=== PATIENT | female | born 1990 | race Two or more races ===

== ENCOUNTER 2024-09-16 21:05 | Observation (INO) | payer OTHER, MEDICAID, SELFPAY ==
[2024-09-16] VITALS (13 sets, daily range): BP systolic 104; BP diastolic 65; PULSE 86–108; RESP 15; TEMP 36.3; O2SAT 92–98; BMI 64.5
[2024-09-16 22:14] LABS: Collection Type, Urine Clean Catch
[2024-09-16 22:27] LABS: ROM Kit Lot # 57805053
[2024-09-16 22:28] LABS: ROM Swab Mixed By: RAWLT; Rupture of Fetal Membranes Negative (Negative); Swb Mxed in Solvent 1 min? Yes
[2024-09-16 22:29] LABS: Bacteria,Urine Rare; Bilirubin,Urine 1+ (Negative); Blood,Urine Negative (Negative); Clarity,Urine Clear (Clear/Hazy); Color,Urine Yellow (Lt Yel-Yel); Glucose, Urine Negative (Negative); Ketones,Urine 1+ (Negative); Leukocyte Esterase,Urine Negative (Negative); Nitrite,Urine Negative (Negative); Protein,Urine 1+ (Neg - Trace); RBC,Urine 5 /hpf (0-3); Specific Gravity,Urine 1.028 (1.001-1.035); Squamous Epithelial Cell,Urine 7 /hpf (0-5); WBC,Urine 3 /hpf (0-5)
[2024-09-16] MEDS: NITROFURANTOIN MACRO 100 MG CAPSULE PO (23:12)
== END 2024-09-16 23:15 | disposition home or self-care (01) ==
PROVIDERS: Admitting Provider Specialist; Visit Provider Specialist
DX: Z34.83 Encounter for supervision of other normal pregnancy, third trimester (principal); Z3A.36 36 weeks gestation of pregnancy
CPT/HCPCS: 59025; 59899; 81001; 84112; A9270

== ENCOUNTER 2024-10-01 08:16 | Inpatient (IN) | payer OTHER, MEDICAID, SELFPAY ==
[2024-10-01] VITALS (15 sets, daily range): BP systolic 0–115; BP diastolic 0–70; PULSE 83–101; RESP 16–18; TEMP 36.8–37.1; BMI 30.7
[2024-10-01 10:12] LABS: Basophils % (Auto) 0 % (0-2.5); Eosinophils # (Auto) 0.1 Thou/mm3 (0.0-0.5); Eosinophils % (Auto) 1 % (0-10); Hematocrit 35.2 % (36.0-46.0); Hemoglobin 12.1 g/dL (12.0-16.0); Immature Granulocytes % (Auto) 1 % (0-0); Immature Granulocytes Auto 0.08 Thou/mm3 (0.00-0.00); Lymphocytes # (Auto) 1.6 Thou/mm3 (1.0-4.8); Lymphocytes % (Auto) 15 % (10-50); Mean Corpuscular HGB Conc 34.4 g/dl (31.0-37.0); Mean Corpuscular Hemoglobin 31.7 pg (25.0-35.0); Mean Corpuscular Volume 92 fL (80-100); Monocytes # (Auto) 0.4 Thou/mm3 (0.0-0.8); Monocytes % (Auto) 4 % (0-12); Neutrophils # (Auto) 8.2 Thou/mm3 (1.8-7.7); Neutrophils % (Auto) 79 % (37-80); Nucleated Red Blood Cell % 0 /100 WBC (0); Platelet Count 241 Thou/mm3 (140-440); RDW Standard Deviation 45.4 fL (36.4-46.3); Red Blood Count 3.82 Miln/mm3 (4.00-5.20); White Blood Count 10.3 Thou/mm3 (3.6-11.0)
[2024-10-01 10:47] LABS: Syphilis Nonreactive (Nonreactive)
[2024-10-01] MEDS: DINOPROSTONE 10 MG VAG.SUPP VAGINAL (11:02)
[2024-10-01 12:13] LABS: Collection Type, Urine Clean Catch
[2024-10-01 12:18] LABS: Bilirubin,Urine Negative (Negative); Blood,Urine Trace (Negative); Clarity,Urine Clear (Clear/Hazy); Color,Urine Yellow (Lt Yel-Yel); Glucose, Urine Negative (Negative); Ketones,Urine Negative (Negative); Leukocyte Esterase,Urine Negative (Negative); Nitrite,Urine Negative (Negative); PH,Urine 6.5 (5.0-7.0); Protein,Urine Trace (Neg - Trace); RBC,Urine 1 /hpf (0-3); Specific Gravity,Urine 1.019 (1.001-1.035); Squamous Epithelial Cell,Urine 1 /hpf (0-5); WBC,Urine 1 /hpf (0-5)
--- NOTE | 2024-10-01 12:37 | PD.LDHP ---
Documentation for date of: 10/01/24 OB Labor/Induct. HPI History of Present Illness History of present illness: Dictated in [facility] [id number] Meds Home Medications and Allergies Home Medications ?Medication ?Instructions ?Recorded ?Confirmed ?Type vits no.130-ferrous fum 1 tab PO QDAY 08/11/24 10/01/24 History 27 mg iron-folic acid 800 mcg tablet ( Vitamin) ursodiol 300 mg capsule mg 10/01/24 10/01/24 History Allergies Allergy/AdvReac Type Severity Reaction Status Date / Time No Known Allergies Allergy Verified 10/01/24 10:13 OB Exam Physical Exam Vital signs: Temp Pulse Resp BP 98.3 F 99 18 99/59 L 10/01/24 08:47 10/01/24 12:32 10/01/24 08:47 10/01/24 12:32 OB Results Labs 10/01/24 09:30 Labs: Short CBC 10/01/24 Range/Units 09:30 WBC 10.3 (3.6-11.0) Thou/mm3 Hgb 12.1 (12.0-16.0) g/dL Hct 35.2 L (36.0-46.0) % Plt Count 241 (140-440) Thou/mm3 Urine 10/01/24 Range/Units 12:00 Urine Color Yellow (Lt Yel-Yel) Urine Clarity Clear (Clear/Hazy) Urine pH 6.5 (5.0-7.0) Ur Specific [place] 1.019 (1.001-1.035) Urine Protein Trace (Neg - Trace) Urine Glucose (UA) Negative (Negative)
--- NOTE | 2024-10-01 12:40 | ESHP_ITS ---
RE: JESSICA FISH : 1990 DATE OF ADMISSION: 10/01/2024 HISTORY OF PRESENT ILLNESS: This is a 34-year-old 6 para 2-0-3-2 with a due date of 10/14/2024 with intrauterine at 38 weeks and 1 day who presents for induction of labor for cholestasis of . The patient has been on Ursodiol since 09/10/2024 when blood work confirmed a total bile acid of 49 associated with itching. The patient subsequently on the Ursodiol, has seen a decline in her bile acid level, the most recent level on 09/24/2024 was 23 and her liver function tests improved with her most recent SGOT of 25 and SGPT of 53. The patient has a normal PT/PTT. She reports occasional contractions. She denies any leaking or bleeding. She reports normal movement. The patient has a history of cholestasis of in her prior 2 pregnancies. ALLERGIES: NO KNOWN DRUG ALLERGIES. MEDICATIONS: 1. multivitamin 1 tablet p.o. daily. 2. Ursodiol 300 mg 1 tablet p.o. t.i.d. 3. Omeprazole 20 mg 1 tablet p.o. daily p.r.n. heartburn. 4. Ferrous sulfate 325 mg 1 tablet p.o. daily. PAST MEDICAL HISTORY: Group B strep, vaginal rectal colonization, cholestasis of in her current and her last two pregnancies, iron deficiency anemia, advanced maternal age, arteriovenous malformation of brain, history of repair at age 11. SOCIAL HISTORY: She denies any alcohol, drug use, or smoking. OBSTETRIC HISTORY: 2011, spontaneous AB 6 weeks gestation with D and C. 2012, 40-week neurovascular delivery, 6 pound 10 ounce female. No complications. 03/02/2016, 40-week neurovascular delivery male in [place]. No complications. 2022, spontaneous AB, 6 weeks gestation. No D and C. 11/2023, six weeks spontaneous . No D and C. PAST SURGICAL HISTORY: Surgical repair of arteriovenous malformation in the brain. D and C in 2011. REVIEW OF SYSTEMS: She denies any chest pain, palpitations, cough, fever, shortness of breath, or lower extremity pain. She denies any headache, change in vision, or right upper quadrant pain. PHYSICAL EXAMINATION: VITAL SIGNS: Blood pressure is 112/65, heart rate 88, respirations 18, temperature 98.2. HEENT: Oropharynx and sclerae are clear. LUNGS: Clear to auscultation bilaterally. HEART: Regular rate and rhythm. ABDOMEN: Gravid, term size consistent with estimated weight of 7.5 pounds. PELVIC: See RN notes. EXTREMITIES: Nontender. SKIN: No gross rashes or lesion. NEUROLOGIC: No focal deficit. ASSESSMENT AND PLAN: Intrauterine at 38 weeks and 1 day. Cholestasis of . Group B strep vaginal rectal colonization, induction of labor. Anticipate spontaneous vaginal delivery. Informed consent was obtained. The patient was made aware of the risks, complications, alternatives, and benefits of the proposed procedure and she agrees. DT: 12:04:42 TT: 12:38:00 Ref: [id number] - TID: [id number]
[2024-10-01] MEDS: ursodioL 300 MG CAPSULE PO ×2 (14:37→22:06)
[2024-10-01] MEDS: RINGERS LACTATED 1000 ML 1,000 ML 100 ML IV (23:15)
[2024-10-01] MEDS: Ampicillin Inj 2,000 MG in SODIUM CHLORIDE 0.9% (P) 100 ML 100 MG IV (23:53)
[2024-10-02] VITALS (20 sets, daily range): BP systolic 0–105; BP diastolic 0–69; PULSE 69–92; RESP 16–22; TEMP 36.4–37.1; O2SAT 95–98
[2024-10-02] MEDS: Ampicillin Inj 1,000 MG in SODIUM CHLORIDE 0.9% (P) 50 ML 50 MG IV (04:12)
[2024-10-02] MEDS: ursodioL 300 MG CAPSULE PO (05:58)
--- NOTE | 2024-10-02 07:23 | PD.LDPN ---
Documentation for date of: 10/02/24 OB Labor Progress Note Pain Control Comments: None Pelvic Exam Dilation (cm): 6 Effacement (%): 50 station: -3 Amniotic membrane status: Intact Comments: Face presentation Contractions Contraction frequency: irregular Status status: Category l Assessment and Plan Comments: Delivery for Malpresentation. Declines BTL Informed consent was obtained the patient made aware of the risks, complications, alternatives and benefits of the proposed procedure and she agrees.
[2024-10-02] MEDS: CITRIC ACID/SODIUM CITR 15 ML UDC (BICITRA) 30 ML PO (07:33)
[2024-10-02] MEDS: RINGERS LACTATED 1000 ML 1,000 ML 100 ML IV (07:33)
[2024-10-02] MEDS: FAMOTIDINE INJ 10 MG/ML VIAL 2 ML 20 MG IV (07:34)
[2024-10-02] MEDS: ceFAZolin/D5W 2 GM IV 2 GM/100 ML BAG IV (07:35)
--- NOTE | 2024-10-02 08:35 | ESDS_ITS ---
DS: Providers Provider Date of admission: 10/01/24 08:16 Primary care physician: Physician No Primary/Family Admitting Provider: David Jorge MD Attending Provider on Admission: David Jorge MD Attending Provider on DC: David Jorge MD Discharging Provider: David Jorge MD DS: Diagnosis Discharge Diagnosis (1) delivery delivered: Status: Acute (2) Endometriosis: Status: Acute (3) Malpresentation of fetus: Status: Acute Problem List Completed Was Problem List Reviewed/Reconciled?: Yes Summary/Hosp Course Brief History: Dictated in [facility] [id number] Peripartum Data Procedures: Procedures Operation Date: 10/02/24 07:45 <No data on this case meets the specified criteria> Time Spent with Patient Time attestation: Total time spent providing and/or coordinating discharge services: Exam Vital Signs Temp Pulse Resp BP 98.5 F 81 17 105/59 L 10/02/24 07:00 10/02/24 06:55 10/02/24 07:00 10/02/24 06:55 Discharge Plan Plan Patient Disposition: HOME (Self Care) Patient condition on transfer: Stable Prescriptions/Referrals Prescriptions/Med Rec: New hydrocodone-acetaminophen 5-325 mg tablet 1 tab PO Q6H MDD 4 PRN (Reason: pain) Qty: 20 0RF ibuprofen 600 mg tablet 600 mg PO Q6H PRN (Reason: pain) Qty: 30 0RF No Action ursodiol 300 mg capsule Vitamin 27 mg iron- 800 mcg tablet 1 tab PO QDAY Referrals: No Primary/Family,Physician [Primary Care Provider] - Patient/Caregiver Discharge Instructions Discharge Activity: activity as tolerated Other Discharge Activity Instructions:: Follow up office 1 week. Education Materials: Breast Care After , After a , C Section Dc, Feel Healthy After Print Language: Kyrgyz Stand Alone Forms: [place] city [place] [employer] Award Info., Patient Portal Info Letter Discharge Order Discharge Orders: Discharge (Routine); Ordered 10/04/24 Ordered By: David Jorge Planned Discharge Date 10/04/24
--- NOTE | 2024-10-02 08:35 | PD.LDDELS ---
Data (Levy) Data : 6 Para: 2 Term: 2 : 0 : 3 Delivery Data (Levy) Labor Data ROM Date: 10/02/24 ROM Time: 08:08 Rupture Type: AROM Amniotic Fluid: Clear Delivery Data EDC: 10/14/24 EDC calculated by:: LMP/early US confirmation Labor Onset Stage 1 Date: 10/01/24 Labor Onset Stage 1 Time: 23:00 Labor Onset Stage 2 Date: 10/02/24 Labor Onset Stage 2 Time: 08:08 Delivery Date: 10/02/24 Delivery Time: 08:08 Gestational age (weeks): 38 Gestational age (days): 2 Placenta Delivery Date: 10/02/24 Placenta Delivery Time: 08:09 Delivered by: David Jorge Delivery nurse: Kylie Merrill Other staff at delivery: Nurse Other staff at delivery: Nursery Nurse Other staff at delivery: Senior Mechanical Project Engineer Other staff at delivery: Scrub Other staff at delivery: Mone Castrejon Other staff at delivery: Neva López Other staff at delivery: MARY ELLEN Other staff at delivery: [email or web address] Delivery Method Delivery: Delivery Type: Primary Presentation: Face Anesthesia Type Primary Anesthesia: Spinal Placenta Placenta Delivery: Manual Placenta Cultures Obtained: No Placenta Sent for Examination: No Cord Sample: Cord Blood Obtained EBL Estimated blood loss (ml): 500 Umbilical Cord Nuchal Cord: x1 Tightly Additional Procedures None Complications Complications: None [place] Data (Levy) [place] Data Gender: Female Infant Weight Grams: 3555 1 Minute Total: 9 5 Minute Total: 9
[2024-10-02] MEDS: OXYTOCIN in NS 20 units 20 UNIT/1,000 ML BAG 125 UNIT IV ×2 (08:55→17:00)
--- NOTE | 2024-10-02 10:23 | PC.NURSE ---
Dr. Jorge notified of pt bigeminy in OR and PVCs in recovery. Pt asymptomatic. Rios Fong CRNA is aware. No new orders
--- NOTE | 2024-10-02 11:01 | ESOP_ITS ---
RE: JESSICA FISH : 1990 DATE OF OPERATION: 10/02/2024 PREOPERATIVE DIAGNOSES: 1. Intrauterine at 38 weeks and 2 days. 2. Malpresentation. POSTOPERATIVE DIAGNOSES: 1. Intrauterine at 38 weeks and 2 days. 2. Malpresentation. 3. Tight nuchal cord. 4. Endometriosis stage I. PROCEDURE PERFORMED: Primary low transverse section via Pfannenstiel skin incision. SURGEON: David Jorge DO CORRECTIONAL SERGEANT: SANDRA Sinha ANESTHESIA: Spinal. ANESTHESIOLOGIST: Jareth Fong CRNA ESTIMATED BLOOD LOSS: 500 mL. COMPLICATIONS: None. COUNTS: Correct. PATHOLOGY: None. FINDINGS: A live female . Face presentation. Tight nuchal cord. Clear amniotic fluid. Apgars, see RN notes. Weight 7 pounds, 13 ounces. Placenta removed complete and intact. Uterus contains superficial endometriotic implants on the posterior uterosacral ligaments. There was no involvement of the cul-de-sac or the bowel. The ovaries and fallopian tubes appeared free of endometriotic implants. Placenta removed complete and intact. DESCRIPTION OF PROCEDURE: After proper informed consent was obtained and the patient was made aware of the risks, complications, alternatives, benefits of the proposed procedure, she was taken to the operating room where she underwent induction of spinal anesthesia. She was placed in the dorsal supine position with leftward tilt. She was prepped and draped in the usual sterile fashion. Timeout was performed. Pfannenstiel skin incision was made with scalpel carried through the underlying layer of fascia with the Bovie. The fascia was nicked in the midline. The incision extended bilaterally with the Bovie. The inferior aspect of the fascial incision was grasped with Santa clamps and elevated. The underlying rectus muscles were dissected off with the Bovie. The rectus muscles were in the midline. The peritoneum identified between two Gray clamps and entered sharply with Metzenbaum scissors. The incision was extended superiorly, inferiorly to good visualization of the bladder. The bladder blade was then inserted. Vesicouterine peritoneum was incised transversely and the bladder flap created digitally. Bladder blades were reinserted. The lower uterine segment was incised in transverse fashion with scalpel. The incision was extended bilaterally digitally. The infant's head delivered. Mouth and nose suctioned with bulb suction. Shoulder and body delivered atraumatically. The cords were clamped and cut. The infant was handed off to waiting pediatric staff. Cord blood and gases were sent. The placenta was then removed manually. The uterus was exteriorized and cleared of all clots and debris. The uterus incision was repaired with #1-0 catgut chromic suture in a running locking fashion. Second layer of same suture was used to imbricate the first layer and obtained excellent hemostasis. The vesicouterine peritoneum was closed with 2-0 chromic catgut suture in a running fashion. Skin was closed with 4-0 Monocryl. Dermabond perineal dressing was applied. Sterile pressure dressing was applied. She tolerated the procedure well. Counts were correct. I discussed with the patient, the nature of her condition and the intraoperative findings and expectation for recovery. All questions were answered. DT: 08:41:05 TT: 10:59:00 Ref: [id number] - TID: [id number]
[2024-10-02 12:26] LABS: Basophils % (Auto) 0 % (0-2.5); Eosinophils % (Auto) 0 % (0-10); Hemoglobin 11.9 g/dL (12.0-16.0); Immature Granulocytes % (Auto) 0 % (0-0); Immature Granulocytes Auto 0.05 Thou/mm3 (0.00-0.00); Lymphocytes # (Auto) 0.9 Thou/mm3 (1.0-4.8); Lymphocytes % (Auto) 7 % (10-50); Mean Corpuscular Hemoglobin 31.9 pg (25.0-35.0); Mean Corpuscular Volume 91 fL (80-100); Monocytes # (Auto) 0.2 Thou/mm3 (0.0-0.8); Monocytes % (Auto) 2 % (0-12); Neutrophils # (Auto) 12.8 Thou/mm3 (1.8-7.7); Neutrophils % (Auto) 91 % (37-80); Nucleated Red Blood Cell % 0 /100 WBC (0); Platelet Count 223 Thou/mm3 (140-440); RDW Standard Deviation 44.6 fL (36.4-46.3); Red Blood Count 3.73 Miln/mm3 (4.00-5.20); White Blood Count 14.1 Thou/mm3 (3.6-11.0)
[2024-10-02] MEDS: KETOROLAC INJ 30 MG/ML VIAL IVP (20:02)
[2024-10-03 03:15] VITALS: BP 115/77; PULSE 76; RESP 16; TEMP 37.1; O2SAT 98
[2024-10-03] MEDS: IBUPROFEN TAB 400 MG TABLET 800 MG PO ×2 (03:36→16:34)
--- NOTE | 2024-10-03 03:56 | ESPR_ITS ---
Subjective Subjective Interval history: Patient denies any primary complaint. She is voiding and ambulating and tolerating regular diet. She denies any excessive vaginal bleeding. She denies any dizziness or lightheadedness. She denies any chest pain palpitation shortness of breath or lower extremity pain. Exam Vital Signs Temp Pulse Resp BP Pulse Ox O2 Del Method 98.8 F 76 16 115/77 98 Room Air 10/03/24 03:15 10/03/24 03:15 10/03/24 03:15 10/03/24 03:15 10/03/24 03:15 10/03/24 03:15 Routine Respiratory Exam Comments: Clear to auscultation bilaterally Routine Cardiovascular Exam Comments: Regular rate and rhythm Routine Abdominal Exam Comments: Dressing dry and intact Fundus firm Routine Extremities Exam Comments: Nontender Objective Labs 10/02/24 12:20 Labs: Laboratory Results - last 24 hr 10/02/24 12:20 WBC 14.1 H RBC 3.73 L Hgb 11.9 L Hct 34.0 L MCV 91 MCH 31.9 MCHC 35.0 RDW Std Deviation 44.6 Plt Count 223 Neut % (Auto) 91 H Lymph % (Auto) 7 L [place] % (Auto) 2 Eos % (Auto) 0 Baso % (Auto) 0 Neut # (Auto) 12.8 H Lymph # (Auto) 0.9 L [place] # (Auto) 0.2 Eos # (Auto) 0.0 Baso # (Auto) 0.0 Immature Gran # (Auto) 0.05 H Absolute Nucleated RBC 0.00 Immature Gran % 0 Nucleated RBC % 0 Assessment & Plan Problem List (1) delivery delivered: Status: Acute Assessment and plan: Remove dressing, encourage ambulation, DC IV, support, possible discharge home tomorrow. (2) Endometriosis: Status: Acute (3) Malpresentation of fetus: Status: Acute Time Spent With Patient Time: Total time spent is greater than 50% in coordination of care (as documented) at patient's floor/unit and/or counseling patient:
[2024-10-03 07:30] VITALS: BP 90/54; PULSE 90; RESP 20; TEMP 36.7; O2SAT 96
[2024-10-03] MEDS: HYDROcodone/APAP 5/325 TABLET 2 TAB PO (10:33)
[2024-10-03 11:30] VITALS: BP 93/58; PULSE 82; RESP 18; TEMP 36.7
[2024-10-03 16:25] VITALS: BP 93/61; PULSE 87; RESP 18; TEMP 37.1; O2SAT 97
[2024-10-03 16:34] VITALS: TEMP 37.1
[2024-10-03 20:06] VITALS: BP 100/66; PULSE 83; RESP 16; TEMP 36.8; O2SAT 96
[2024-10-03] MEDS: ACETAMINOPHEN 325 MG TABLET 650 MG PO (22:29)
[2024-10-04 03:31] VITALS: BP 108/70; PULSE 90; RESP 21; TEMP 36.7; O2SAT 96
[2024-10-04] MEDS: IBUPROFEN TAB 400 MG TABLET 800 MG PO (06:36)
[2024-10-04 08:00] VITALS: BP 118/77; PULSE 94; RESP 18; TEMP 37.2; O2SAT 96
--- NOTE | 2024-10-04 10:26 | ESPR_ITS ---
RE: JESSICA FISH : 1990 DATE OF SERVICE: 10/04/2024 SUBJECTIVE: Postop day #2, the patient denies any problem or complaints. OBJECTIVE: Vital Signs: Stable. She is afebrile. Lungs: Clear to auscultation bilaterally. Heart: Regular rate and rhythm. Incision is clear and intact. Fundus is firm. Extremities: Nontender. ASSESSMENT: POD #2 status post delivery. PLAN: Discharge home. Discharge instructions given. Follow up in the office in 1 week. DT: 08:37:26 TT: 10:19:00 Ref: [id number] - TID: [id number] MTDD
== END 2024-10-04 12:04 | disposition home or self-care (01) | DRG 788 ==
LOC: S4SX 08:27 → S4NX 10-02 08:06
PROVIDERS: Admitting Provider Specialist; Visit Provider Specialist
PROC: 10D00Z1 Extraction of Products of Conception, Low, Open Approach (ICD-10-PCS; CPT 59514; principal; 2024-10-02 07:30)
DX: O34.83 Maternal care for other abnormalities of pelvic organs, third trimester (principal); Z3A.38 38 weeks gestation of pregnancy; Z37.0 Single live birth; O69.1XX0 Labor and delivery complicated by cord around neck, with compression, not applicable or unspecified; O32.3XX0 Maternal care for face, brow and chin presentation, not applicable or unspecified; N80.3A3 Superficial endometriosis of the bilateral uterosacral ligament(s)
CPT/HCPCS: 36415; 59409; 81001; 85025; 86780; 86850; 86900; 86901; 87086; 94762; A4649; J0290; J0689; J1100; J1885; J2274; J2371; J2405; J2590; J3490; J7050; J7120; A9270; J0690; J2270

== ENCOUNTER → 2025-04-13 | Outpatient (CLI) | payer OTHER, MEDICAID, SELFPAY ==
--- NOTE | 2025-04-13 11:32 | XR_ITS ---
Examination: Complete OB ultrasound, less than 14 weeks, transabdominal Date and time of exam: April 13, 2025 1208 hours INDICATIONS: No care, unknown size and dates Technique: Obstetrical ultrasound images less than 14 weeks performed via transabdominal imaging Findings: A normal shaped single intrauterine gestation is present in the uterus. CRL 5.0 cm corresponds to 11 weeks 5 day gestational age Cardiac motion 167 BPM Ultrasonographic survey of visible and placental structures unremarkable. Amniotic fluid volume appears appropriate for this estimated gestational age. Right ovary 2.9 cm arterial flow Left ovary 2.5 cm arterial flow IMPRESSION: Viable intrauterine gestation 11 weeks 5 days.
== END | disposition home or self-care (01) ==
LOC: CDIM 11:30
PROVIDERS: Referring Provider Obstetrics & Gynecology; Visit Provider Obstetrics & Gynecology
DX: O20.0 Threatened abortion (principal); Z3A.11 11 weeks gestation of pregnancy
CPT/HCPCS: 76801